=== PATIENT | female | born 1945 | race Caucasian/White ===

== ENCOUNTER 2021-01-11 12:50 | Emergency (ER) | payer MEDICARE ==
[~2021-01-11 12:50] MED LIST: ANTIVERT25 MG PO; ASPIRIN EC81 MG PO; ZESTRIL2.5 MG PO
[2021-01-11 14:24] LABS: BASOPHIL 0.4 % (0-2); EOSINOPHIL 0.1 % (0-7); HCT 36.9 % (37.0-47.0); HGB 12.3 g/dl (12.5-16.0); LYMPHOCYTE 16.6 % (15-48); MCH 32.3 pg (25.0-31.0); MCHC 33.3 g/dL (32.0-36.0); MCV 96.9 fL (78.0-100.0); MPV 10.3 fL (6.0-9.5); NEUTROPHIL 66.5 % (41-80); NRBC 0; PLT 217 K/uL (150-400); RBC 3.81 M/uL (4.20-5.40); RDW 13.1 % (11.5-14.0); WBC 6.8 K/uL (4.0-10.5)
[2021-01-11 14:40] LABS: ALBUMIN 3.2 g/dL (3.4-5.0); BILIRUBIN - TOTAL 0.3 mg/dL (0.2-1.0); BUN/CREAT RATIO (CALC) 15.8 RATIO; CREATININE 0.95 mg/dL (0.51-0.95); POTASSIUM 3.8 mmol/L (3.5-5.1); TOTAL PROTEIN 7.2 g/dL (6.4-8.2)
[2021-01-11 17:26] LABS: BILIRUBIN NEGATIVE (NEGATIVE); BLOOD NEGATIVE Ery/uL (NEGATIVE); CLARITY CLEAR (CLEAR); COLOR YELLOW (YELLOW); GLUCOSE (U) NORMAL (NORMAL); LEUKOCYTES NEGATIVE Leu/uL (NEGATIVE); NITRITE NEGATIVE (NEGATIVE); PROTEIN NEGATIVE (NEGATIVE); UROBILINOGEN 0.2 mg/dL (0.2-1.0); pH 6.5 (5.0-9.0)
[2021-01-11] MEDS ORDERED: MEDROL 4MG DOSEP4 MG PO (18:43)
== END 2021-01-11 20:17 | disposition home or self-care (01) ==
LOC: FER 12:50
PROVIDERS: Emergency Medicine
DX: U07.1 COVID-19 (principal); I10 Essential (primary) hypertension; Z88.0 Allergy status to penicillin; Z79.82 Long term (current) use of aspirin; Z79.899 Other long term (current) drug therapy; Z23 Encounter for immunization
CPT/HCPCS: 36415; 70450; 71045; 80053; 81003; 84484; 85025; 93005; J7040; M0243; Q0244; U0002

== ENCOUNTER 2021-07-28 15:53 | Emergency (ER) | payer MEDICARE ==
[~2021-07-28 15:53] MED LIST changes: +MEDROL 4MG DOSEP4 MG PO
[2021-07-28 16:58] LABS: BASOPHIL 0.3 % (0-2); EOSINOPHIL 0.2 % (0-7); HCT 35.7 % (37.0-47.0); LYMPHOCYTE 15.2 % (15-48); MCH 32.3 pg (25.0-31.0); MCHC 33.6 g/dL (32.0-36.0); MCV 96.2 fL (78.0-100.0); MONOCYTE 8.2 % (0-12); MPV 10.7 fL (6.0-9.5); NEUTROPHIL 75.8 % (41-80); NRBC 0; PLT 243 K/uL (150-400); RBC 3.71 M/uL (4.20-5.40); RDW 12.9 % (11.5-14.0); WBC 11.8 K/uL (4.0-10.5)
[2021-07-28 17:12] LABS: ALBUMIN 3.4 g/dL (3.4-5.0); ALKALINE PHOSHATASE 64 U/L (46-116); ALT 17 U/L (14-59); AST 14 U/L (15-37); BILIRUBIN - TOTAL 0.4 mg/dL (0.2-1.0); BUN 10 mg/dL (7-18); BUN/CREAT RATIO (CALC) 10.8 RATIO; CHLORIDE 104 mmol/L (98-107); CO2 (BICARBONATE) 25 mmol/L (21-32); CREATININE 0.93 mg/dL (0.51-0.95); GLOBULIN (CALCULATION) 3.6 g/dL; GLUCOSE 109 mg/dL (74-106); LIPASE 120 U/L (73-393); MAGNESIUM 1.9 mg/dL (1.8-2.4); POTASSIUM 3.8 mmol/L (3.5-5.1)
[2021-07-28 17:24] LABS: CORONAVIRUS 2019 SARS-COV-2 NEGATIVE (NEGATIVE); INFLUENZA A NAA NEGATIVE (NEGATIVE)
[2021-07-28 17:48] LABS: BILIRUBIN NEGATIVE (NEGATIVE); BLOOD NEGATIVE Ery/uL (NEGATIVE); CLARITY CLEAR (CLEAR); COLOR YELLOW (YELLOW); GLUCOSE (U) NORMAL (NORMAL); LEUKOCYTES NEGATIVE Leu/uL (NEGATIVE); NITRITE NEGATIVE (NEGATIVE); PROTEIN NEGATIVE (NEGATIVE); SPECIFIC GRAVITY <=1.005 (1.001-1.030); UROBILINOGEN 0.2 mg/dL (0.2-1.0)
[2021-07-28 17:51] LABS: AMPHETAMINES NEGATIVE (NEGATIVE); BARBITURATES NEGATIVE (NEGATIVE); ECSTASY (MDMA) NEGATIVE (NEGATIVE); MARIJUANA (THC) NEGATIVE (NEGATIVE); METHADONE NEGATIVE (NEGATIVE); OPIATES NEGATIVE (NEGATIVE); OXYCODONE NEGATIVE (NEGATIVE)
[2021-07-28] MEDS ORDERED: METRONIDAZOLE500 MG PO (19:19)
[2021-07-28] MEDS ORDERED: CIPRO500 MG PO (19:19)
== END 2021-07-28 20:38 | disposition home or self-care (01) ==
LOC: FER 15:53
PROVIDERS: Internal Medicine
DX: K52.9 Noninfective gastroenteritis and colitis, unspecified (principal); R55 Syncope and collapse; I48.91 Unspecified atrial fibrillation; I10 Essential (primary) hypertension; Z88.0 Allergy status to penicillin; Z20.822 Contact with and (suspected) exposure to COVID-19
CPT/HCPCS: 36415; 70450; 71045; 80048; 80053; 80305; 81003; 83690; 83735; 84145; 85025; 93005; G0480; J7040; U0002